=== PATIENT | female | born 1960 | race African-American/Black ===

== ENCOUNTER 2017-02-17 12:39 | Emergency (ER) | payer OTHER, MEDICAID ==
[~2017-02-17] VITALS: Ht 152.4 cm; Wt 127.0 kg
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
[2017-02-17 12:40] VITALS: BP 173/87; PULSE 66; RESP 18; TEMP 97.2; O2SAT 98
--- NOTE | 2017-02-17 12:40 | NUR ---
JUNI Pringle at bedside examining patient.
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
[2017-02-17 13:30] VITALS: BP 158/78; TEMP 98.5
[2017-02-17] MEDS ORDERED: NACL 0.9% 1,000 ML IV ONE (13:30)
[2017-02-17] MEDS ORDERED: MORPHINE 4 MG/ML INJ. SYRINGE IVP ONE (13:30)
[2017-02-17] MEDS ORDERED: ONDANSETRON 4 MG ODT TAB PO ONE (13:30)
[2017-02-17 13:39] LABS: BASOPHILS % (AUTO) 0.4 % (0.0-2.0); EOSINOPHILS # (AUTO) 0.1 K/uL (0.0-0.4); EOSINOPHILS % (AUTO) 0.6 % (0.0-4.0); HEMATOCRIT 33.3 % (36-48); HEMOGLOBIN 10.7 g/dL (12.0-16.0); LYMPHOCYTES # (AUTO) 1.6 K/uL (1.0-5.5); LYMPHOCYTES % (AUTO) 13.4 % (20.5-51.5); MEAN CORPUSCULAR HEMOGLOBIN 24 pg (27-31); MEAN CORPUSCULAR HGB CONC 32 % (32-36); MEAN CORPUSCULAR VOLUME 74 fL (79.0-98.0); MONOCYTES # (AUTO) 0.6 K/uL (0.0-1.0); MONOCYTES % (AUTO) 5.3 % (1.7-9.3); NEUTROPHILS # (AUTO) 9.3 K/uL (1.8-7.7); NEUTROPHILS % (AUTO) 80.3 % (40.0-70.0); PLATELET COUNT (AUTO) 400 K/uL (130-430); RED BLOOD CELL COUNT(AUTO) 4.49 MIL/uL (4.2-6.2); RED CELL DISTRIBUTION WIDTH 20.8 % (9.0-15.0); WHITE BLOOD COUNT (AUTO) 11.6 K/uL (4.8-10.8)
[2017-02-17 13:47] LABS: CALCIUM 9.3 mg/dL (8.4-11.0); CREATININE 0.92 mg/dL (0.55-1.30); POTASSIUM 3.8 mmol/L (3.5-5.1)
[2017-02-17 13:50] LABS: PROTHROMBIN TIME 10.7 SECS (9.5-12.5)
--- NOTE | 2017-02-17 13:52 | NUR ---
OFFICER María Elena DAWSON, HERE TO INTERVIEW PT, BADGE # [id number].
[2017-02-17 13:53] LABS: ALBUMIN 3.7 g/dL (3.4-4.8); TOTAL BILIRUBIN 0.5 mg/dL (0.0-1.0); TOTAL PROTEIN, SERUM 7.9 g/dL (6.4-8.3)
--- NOTE | 2017-02-17 13:54 | NUR ---
TRASNPORTED PT TO CT SCAN DEPT.
--- NOTE | 2017-02-17 14:08 | NUR ---
RETURNED TO ROOM 6.
--- NOTE | 2017-02-17 14:47 | NUR ---
# 20 gauge angiocath placed to RIGHT A/C. Use of aseptic technique. Opsite placed over site. Blood return noted. Flushed with 10 cc of normal saline. No evidence of infiltration noted. Patient tolerated well.
--- NOTE | 2017-02-17 14:51 | NUR ---
MEDICATED WITH MORPHINE 4 MG IVP FOR FACIAL/HEAD DISCOMFORT.
--- NOTE | 2017-02-17 15:00 | NUR ---
PT TALKING OVER THE CELL PHONE, MOPRHINE EFFECTIVE.
--- NOTE | 2017-02-17 17:00 | NUR ---
Patient given written and verbal discharge instructions and verbalizes understanding. ER MD DR SYED discussed with patient the results and treatment provided. Patient in stable condition. ID arm band removed. Rx of TRAMADOL HYDROCHLORIDE given. Patient educated on pain management and to follow up with PMD. Pain Scale 2. Opportunity for questions provided and answered.
[2017-02-17 17:07] VITALS: PULSE 74; RESP 18; O2SAT 98
== END 2017-02-17 17:00 | disposition home or self-care (01) ==
LOC: SED 12:39
DX: S00.83XA Contusion of other part of head, initial encounter (principal); M19.90 Unspecified osteoarthritis, unspecified site; I10 Essential (primary) hypertension; Y08.89XA Assault by other specified means, initial encounter; Y93.89 Activity, other specified; Y92.89 Other specified places as the place of occurrence of the external cause; Y99.8 Other external cause status
CPT/HCPCS: 36415; 70450; 70486; 80053; 85025; 85610; 85730; 96361; 96374; 99285; J2270; J7030; Q0162